=== PATIENT | male | born 2000 | race Caucasian/White ===

== ENCOUNTER 2023-09-25 08:10 | Observation (INO) ==
[2023-09-25] MEDS ORDERED: Ondansetron 4 mg VIAL 2 MG/ML 2 ml VIAL IV PRN ×2 (09:15→15:13)
[2023-09-25] MEDS: D5W 1/2 NS 40 Meq KCL 1000 ml 1,000 ML IV SCH (10:50)
[2023-09-25] MEDS: HYDROmorphone 0.5 MG/0.5 ML SYRINGE IV SLOW PU PRN (11:45)
[2023-09-25] MEDS: Piperacillin/Tazobac 3.375 BAG 3.375 GM/100 ML BAG IV SCH (11:53)
[2023-09-25] MEDS ORDERED: HYDROmorphone 1 MG/1 ML SYRINGE ONE (14:27)
[2023-09-25] MEDS ORDERED: fentaNYL 100 mcg/2 ml 50 MCG/ML VIAL IV PRN (15:13)
[2023-09-25] MEDS ORDERED: Naloxone 0.4 mg VIAL 0.4 mg/ml 1 ml VIAL IV PRN (15:13)
[2023-09-25] MEDS ORDERED: Propofol 10 MG/ML 20 ML BTL ONE (15:50)
[2023-09-25] MEDS ORDERED: Dexamethasone IV 4 MG/ML VIAL 1 ml VIAL ONE (15:50)
[2023-09-25] MEDS ORDERED: Lidocaine 2% PF 5 ML VIAL ONE (15:50)
[2023-09-25] MEDS ORDERED: fentaNYL 100 mcg/2 ml 50 MCG/ML VIAL ONE ×2 (15:50→15:51)
[2023-09-25] MEDS ORDERED: Ondansetron 4 mg VIAL 2 MG/ML 2 ml VIAL ONE (15:50)
[2023-09-25] MEDS ORDERED: Midazolam 2 mg/2 ml VIAL 1 mg/ml 2 ml VIAL (2 mg) ONE (15:50)
[2023-09-25] MEDS ORDERED: Lidocaine 1% w EPI 1:200,000 SDV 30 ML VIAL ONE (16:28)
[2023-09-25] MEDS ORDERED: Bupivacaine 0.25% SDV 30 ML ONE (16:28)
[2023-09-25 19:30] VITALS: BP 181/97
== END 2023-09-25 19:45 | disposition home or self-care (01) ==
LOC: EDHOLD 08:10 → ED 08:10 → EDHOLD 12:05 → AA 19:15
PROVIDERS: ADMIT Surgery; ATTEND Surgery